=== PATIENT | female | born 1970 | race Caucasian/White ===

== ENCOUNTER 2016-10-05 16:47 | Emergency (ER) | payer OTHER ==
[2016-10-05 17:08] VITALS: BP 134/86
== END 2016-10-05 18:12 | disposition left against medical advice (07) ==
LOC: ED 16:47
DX: R06.02 Shortness of breath (principal); Z53.21 Procedure and treatment not carried out due to patient leaving prior to being seen by health care provider
CPT/HCPCS: 93005; 99281